=== PATIENT | female | born 1955 | race Caucasian/White ===

== ENCOUNTER 2017-06-17 13:04 | Emergency (ER) | payer BC ==
[2017-06-17 13:56] LABS: ABSOLUTE BASOPHILS # (AUTO) 0.1 10^3/uL (0.0-0.2); ABSOLUTE LYMPHOCYTES (AUTO) 0.9 10^3/uL (0.5-4.7); ABSOLUTE MONOCYTES (AUTO) 0.8 10^3/uL (0.1-1.4); ABSOLUTE NEUT (AUTO) 9.3 10^3/uL (1.7-8.2); BASOPHILS % (AUTO) 0.8 % (0-2); EOSINOPHILS % (AUTO) 0.4 % (0-6); HEMATOCRIT 39.1 % (36.0-47.0); HEMOGLOBIN 12.6 g/dL (12.0-15.5); MEAN CORPUSCULAR HEMOGLOBIN 26.3 pg (27.0-33.4); MEAN CORPUSCULAR HGB CONC 32.1 g/dL (32.0-36.0); MEAN CORPUSCULAR VOLUME 82 fl (80-97); MONOCYTES % (AUTO) 7.4 % (3-13); PLATELET COUNT 166 10^3/uL (150-450); RED BLOOD COUNT 4.79 10^6/uL (3.72-5.28); SEGMENTED NEUTROPHILS % (AUTO) 83.4 % (42-78); TOTAL CELLS COUNTED % (AUTO) 100 %; WHITE BLOOD COUNT 11.1 10^3/uL (4.0-10.5)
[2017-06-17 14:16] LABS: ALANINE AMINOTRANSFERASE 42 U/L (9-52); ALBUMIN 4.4 g/dL (3.5-5.0); ALKALINE PHOSPHATASE 122 U/L (38-126); ANION GAP 11 (5-19); ASPARTATE AMINO TRANSFERASE 53 U/L (14-36); BILIRUBIN,DIRECT 0.4 mg/dL (0.0-0.4); BILIRUBIN,TOTAL 0.6 mg/dL (0.2-1.3); BLOOD UREA NITROGEN 25 mg/dL (7-20); CALCIUM 11.4 mg/dL (8.4-10.2); CARBON DIOXIDE 28 mmol/L (22-30); CHLORIDE 107 mmol/L (98-107); GLUCOSE 102 mg/dL (75-110); LITHIUM 1.1 mEq/L (0.6-1.2); SODIUM 145.7 mmol/L (137-145); TOTAL PROTEIN 7.8 g/dL (6.3-8.2)
[2017-06-17 14:23] LABS: ACETAMINOPHEN < 10 ug/mL (10-30); ALCOHOL < 10 mg/dL (NONE DETECTED); SALICYLATE < 1.0 mg/dL (2.0-20.0)
[2017-06-17] MEDS ORDERED: NORMAL SALINE 1000 ML 1,000 ML IV ONE (14:26)
--- NOTE | 2017-06-17 14:29 | ER Document Report ---
ED General - HPI Patient complains to provider of: Overdose <JOSAFAT HENDRICKS - Last Filed: 06/17/17 15:44> <PATRICE JAFFE - Last Filed: 06/17/17 16:17> <BRIAN REYES - Last Filed: 06/17/17 16:26> - General Chief Complaint: Possible Overdose Stated Complaint: POSSIBLE OVERDOSE Time Seen by Provider: 06/17/17 13:21 - HPI Notes: Patient coming in for an overdose. Patient states night prior to arrival she took approximately 10-30 tablets of Xanax. Patient states woke up this morning had no complaints therefore came to the ER for further evaluation. Patient states "there is loss of going on in life and his took the medication. Patient does not admit to taking medications to harm herself. When asked patient denies any attempts to harm herself or overdoses in the past however she apparently told EMS that she did this approximately 20-30 years ago. Patient does not expand upon the "stress in her life". Patient states she does have a history of manic depression along with hyper lipidemia hypertension. Hypothyroidism. Patient resting comfortably upon my evaluation with dry lips. Denies fever chills nausea vomiting diarrhea (JOSAFAT HENDRICKS) - Related Data Allergies/Adverse Reactions: clarithromycin [From Biaxin] Allergy (Verified 06/17/17 13:35) Penicillins Allergy (Verified 06/17/17 13:35) sulfamethoxazole [From Septra] Allergy (Verified 06/17/17 13:35) trimethoprim [From Septra] Allergy (Verified 06/17/17 13:35) Past Medical History - Social History Smoking Status: Unknown if Ever Smoked Frequency of alcohol use: None Patient has suicidal ideation: No Patient has homicidal ideation: No Renal/ Medical History: Denies: Hx Peritoneal Dialysis <JOSAFAT HENDRICKS - Last Filed: 06/17/17 15:44> - Social History Family History: Reviewed & Not Pertinent <BRIAN REYES - Last Filed: 06/17/17 16:26> Review of Systems - Review of Systems Constitutional: Other - Overdose EENT: No symptoms reported Cardiovascular: No symptoms reported Respiratory: No symptoms reported Gastrointestinal: No symptoms reported Genitourinary: No symptoms reported Female Genitourinary: No symptoms reported Musculoskeletal: No symptoms reported Skin: No symptoms reported Hematologic/Lymphatic: No symptoms reported Neurological/Psychological: No symptoms reported <JOSAFAT HENDRICKS - Last Filed: 06/17/17 15:44> Physical Exam - Vital signs Interpretation: Normal - General General appearance: Appears well, Alert - HEENT Head: Normocephalic, Atraumatic Eyes: Normal Pupils: PERRL Mucous membranes: Dry - Respiratory Respiratory status: No respiratory distress Chest status: Nontender Breath sounds: Normal Chest palpation: Normal - Cardiovascular Rhythm: Regular Heart sounds: Normal auscultation Murmur: No - Abdominal Inspection: Normal Distension: No distension Bowel sounds: Normal Tenderness: Nontender Organomegaly: No organomegaly - Back Back: Normal, Nontender - Extremities General upper extremity: Normal inspection, Nontender, Normal color, Normal ROM , Normal temperature General lower extremity: Normal inspection, Nontender, Normal color, Normal ROM , Normal temperature, Normal weight bearing. No: Iva's sign - Neurological Neuro grossly intact: Yes Cognition: Normal Orientation: AAOx4 Darby Coma Scale Eye Opening: Spontaneous Crosby Coma Scale Verbal: Oriented Crosby Coma Scale Motor: Obeys Commands Darby Coma Scale Total: 15 Speech: Normal Motor strength normal: LUE, RUE, LLE, RLE Sensory: Normal - Psychological Associated symptoms: Normal affect, Normal mood - Skin Skin Temperature: Warm Skin Moisture: Dry Skin Color: Normal <JOSAFAT HENDRICKS - Last Filed: 06/17/17 15:44> - Vital signs Vitals: Resp 21 H 06/17/17 13:11 Course - Laboratory Result Diagrams: 06/17/17 13:40 06/17/17 13:40 <JOSAFAT HENDRICKS - Last Filed: 06/17/17 15:44> - Laboratory Result Diagrams: 06/17/17 13:40 06/17/17 13:40 <PATRICE JAFFE - Last Filed: 06/17/17 16:17> - Laboratory Result Diagrams: 06/17/17 13:40 06/17/17 13:40 <BRIAN REYES - Last Filed: 06/17/17 16:26> - Re-evaluation Re-evalutation: 06/17/17 14:28 Laboratory studies showed elevation patient's renal function more likely due to dehydration. Patient was given a liter of fluids. Patient does not endorseKidney failure in the past. Otherwise no critical etiology seen. Patient is medically cleared for psychiatric evaluation. (JOSAFAT HENDRICKS) 06/17/17 16:26 Patient was evaluated by mental health, in agreement with primary physician and myself patient is stable for discharge After performing a Medical Screening Examination, I estimate there is LOW risk for any life threatening mental health issues. At this time the patient looks extremely well and has not attempted severe self harm. I have reevaluated this patient multiple times and no significant life threatening changes are noted. The patient and I have discussed the diagnosis and risks, and we agree with discharging home with close follow-up with the understanding that symptoms and presentations can change. We also discussed returning to the Emergency Department immediately if new or worsening symptoms occur. We have discussed the symptoms which are most concerning (hallucinations, thoughts or actions of self harm or harm to others) that necessitate immediate return. (BRIAN REYES) - Vital Signs Vital signs: Temp Pulse Resp BP Pulse Ox 97.4 F 23 H 149/66 H 95 06/17/17 13:13 06/17/17 13:12 06/17/17 13:12 06/17/17 13:12 - Laboratory Laboratory results interpreted by me: 06/17/17 06/17/17 13:40 13:40 WBC 11.1 H MCH 26.3 L Seg Neutrophils % 83.4 H Lymphocytes % 8.0 L Absolute Neutrophils 9.3 H Sodium 145.7 H BUN 25 H Creatinine 1.66 H Est GFR ( Amer) 38 L Est GFR (Non-Af Amer) 31 L Calcium 11.4 H AST 53 H Salicylates < 1.0 L Acetaminophen < 10 L Valproic Acid < 10.0 L Discharge <JOSAFAT HENDRICKS - Last Filed: 06/17/17 15:44> <PATRICE JAFFE - Last Filed: 06/17/17 16:17> <BRIAN REYES - Last Filed: 06/17/17 16:26> - Discharge Clinical Impression: Intentional overdose of Xanax Bipolar disorder Qualifiers: Active/Remission status: currently active Current bipolar episode type: mixed Current episode severity: mild Qualified Code(s): F31.61 - Bipolar disorder, current episode mixed, mild Condition: Good Disposition: HOME, SELF-CARE Additional Instructions: Bipolar Disorder Bipolar disorder is also called manic-depressive disorder. Depression alternates with brain hyperactivity called kevyn. Each phase lasts from several days to a few weeks. We don't know exactly what causes bipolar disorder , but it's treatable. During the "manic phase," you may feel elated and energetic. You may have racing thoughts, rapid speech, increased activity, and grandiose ideas. During this time, you may not realize how poor your judgement is. Inappropriate spending, drug abuse, excessive alcohol use, marriage problems, and irresponsible sexual behavior are common during the manic phase. During the "depressive phase," you might feel depressed, guilty, worthless , fatigued, and unable to concentrate. You might have thoughts of suicide. Good treatments are available for bipolar disorder. [place] Of [place] is a classic drug for bipolar disorder, and is still often useful. If the manic phase is very mild, an antidepressant alone can be prescribed. If the manic phase is very severe, an antipsychotic medicine (such as Haldol) may be needed. The treatment must be matched to your symptoms, so it's important to work closely with your psychiatric care provider. Contact your physician, the hospital emergency center, crisis line, or your counsellor if you are losing control or having self-destructive thoughts. FOLLOW-UP CARE: You are encouraged to follow up with your established providers (Dr. Quintero and Katheryn Mcnulty) for continued mental health and medication management services. If you experience worsening or a significant change in your symptoms , notify the physician immediately or return to the Emergency Department at any time for re-evaluation. Referrals: ISHAAN QUINTERO MD [Primary Care Provider] - Follow up as needed
[2017-06-17 14:42] LABS: APPEARANCE,URINE CLEAR; BILIRUBIN,URINE NEGATIVE (NEGATIVE); COLOR,URINE YELLOW; GLUCOSE, URINE NEGATIVE (NEGATIVE); KETONES,URINE NEGATIVE (NEGATIVE); LEUKOCYTE ESTERASE,URINE NEGATIVE (NEGATIVE); NITRITE,URINE NEGATIVE (NEGATIVE); PROTEIN,URINE NEGATIVE (NEGATIVE); URINE SPECIFIC GRAVITY 1.009; UROBILINOGEN,URINE NEGATIVE mg/dL (<2.0)
[2017-06-17 14:55] LABS: URINE AMPHETAMINES SCREEN NEGATIVE; URINE BARBITURATES SCREEN NEGATIVE; URINE BENZODIAZEPINES SCREEN UNCONFIRMED POSITIVE; URINE COCAINE SCREEN NEGATIVE; URINE MARIJUANA (THC) SCREEN NEGATIVE; URINE METHADONE SCREEN NEGATIVE; URINE PHENCYCLIDINE SCREEN NEGATIVE
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
[2017-06-17 16:28] VITALS: BP 138/64
--- NOTE | 2017-06-18 09:31 | EKG REPORT ---
SEVERITY:- NORMAL ECG - SINUS RHYTHM : Confirmed by: Sulma Phan 18-Jun-2017 09:30:59
== END 2017-06-17 16:40 | disposition home or self-care (01) ==
LOC: ER 13:04
DX: T42.4X2A Poisoning by benzodiazepines, intentional self-harm, initial encounter (principal); Y92.009 Unspecified place in unspecified non-institutional (private) residence as the place of occurrence of the external cause; F31.61 Bipolar disorder, current episode mixed, mild; I10 Essential (primary) hypertension; Z88.1 Allergy status to other antibiotic agents; Z88.0 Allergy status to penicillin
CPT/HCPCS: 93005; 99285; 96360; 36415; 80307 ×4; 80178; 85025; 80053; 81001; 80164; 93010; J7030

== ENCOUNTER 2017-06-21 15:16 | Emergency (ER) | payer BC ==
[2017-06-21 16:15] LABS: INTERNATIONAL RATION (INR) 0.98; PROTHROMBIN TIME 13.7 SEC (11.4-15.4)
--- NOTE | 2017-06-21 16:15 | ER Document Report ---
ED Psych Disorder / Suicide - General Mode of Arrival: Medic Information source: Patient, Parent, Relative, Law Enforcement Cannot obtain history due to: Altered mental status TRAVEL OUTSIDE OF THE [place] IN LAST 30 DAYS: No <JENNIFER BEDOYA - Last Filed: 06/21/17 18:32> <ROMERO JOHNSON - Last Filed: 06/21/17 18:41> - General Chief Complaint: Suicidal Ideation Stated Complaint: POSSIBLE OVERDOSE Time Seen by Provider: 06/21/17 15:55 Notes: Patient is a 62-year-old female who presents to the emergency department today with complaints of a possible overdose. EMS states during transport here the patient had periods of apnea. Law enforcement states that on their arrival the patient mentioned taking 4 lithium capsules but then stopped talking. According to family at bedside, the patient used to live with her mother however the patient's mother has developed Parkinson's so she moved to the [facility] with the patient's brother who is at bedside as well. Brother states that they "lost track of her" saying that they were unable to get ahold of her so they came to [place] to attempt to locate her. They found her at her mother's house "in this state". Family found a suicide note that the patient left behind. Law-enforcement at bedside states that the patient also had an overdose attempt last week in which she called law-enforcement after doing it stating she took 20 or 30 Xanax. It is not known the type or amount of mediations taken during this attempt. Patient had a bottle of lithium beside her when she was found however that prescription was from early May so it is unknown how many pills the patient took. The patient is prescribed lithium, Seroquel, Synthroid, and Zoloft. (JENNIFER BEDOYA) - Related Data Allergies/Adverse Reactions: clarithromycin [From Biaxin] Allergy (Verified 06/17/17 13:35) Penicillins Allergy (Verified 06/17/17 13:35) sulfamethoxazole [From Septra] Allergy (Verified 06/17/17 13:35) trimethoprim [From Septra] Allergy (Verified 06/17/17 13:35) Past Medical History - General Information source: Parent, Relative, [facility] Records Cannot obtain history due to: Altered mental status - Social History Smoking Status: Unknown if Ever Smoked Lives with: Alone Family History: Reviewed & Not Pertinent Psychiatric Medical History: Reports: Hx Bipolar Disorder Surgical Hx: Negative <JENNIFER BEDOYA - Last Filed: 06/21/17 18:32> - Past Medical History Cardiac Medical History: Reports: Hx Hypercholesterolemia, Hx Hypertension EENT Medical History: Reports: Other - Parathyroidectomy. Endocrine Medical History: Reports: Hx Hypothyroidism, Other - Parathyroidectomy , thyroid hyperplasia, vitamin D deficiency Psychiatric Medical History: Reports: Hx Dementia <ROMERO JOHNSON - Last Filed: 06/21/17 18:41> Review of Systems - Review of Systems -: Yes ROS unobtainable due to patient's medical condition <JENNIFER BEDOYA - Last Filed: 06/21/17 18:32> Physical Exam <JENNIFER BEDOYA - Last Filed: 06/21/17 18:32> <ROMERO JOHNSON - Last Filed: 06/21/17 18:41> - Vital signs Vitals: Pulse Ox 82 L 06/21/17 15:19 - Notes Notes: PHYSICAL EXAM GENERAL: Awake but somewhat drowsy. HEAD: Normocephalic, atraumatic. EYES: Pupils equal, round, and reactive to light. Extraocular movements intact. ENT: Oral mucosa moist, tongue midline. NECK: Full range of motion. Supple. Trachea midline. LUNGS: Clear to auscultation bilaterally, no wheezes, rales, or rhonchi. No respiratory distress. HEART: Tachycardic, regular rhythem, 2/6 systolic murmur. No gallops or rubs. ABDOMEN: Soft, non-tender. Non-distended. Bowel sounds present in all 4 quadrants but hypoactive. No guarding, rigidity, or rebound. EXTREMITIES: Moves all 4 extremities spontaneously. No edema, radial and dorsalis pedis pulses 2/4 bilaterally. No cyanosis. NEUROLOGICAL: Disoriented. Is able to state that she is at [facility] but states President Obama is in office, states it is 2001, and is unable to state her age. Stops talking and stares off intermittently, does not respond to painful stimuli during these episodes consistent with seizure activity. Follows commands prior to these episodes. Biceps and patellar DTRs 2+ bilaterally. PSYCH: Flat affect SKIN: Warm, dry, normal turgor. No rashes or lesions noted. (JENNIFER BEDOYA) Course - Laboratory Result Diagrams: 06/21/17 15:23 06/21/17 15:23 <JENNIFER BEDOYA - Last Filed: 06/21/17 18:32> - Laboratory Result Diagrams: 06/21/17 15:23 06/21/17 15:23 <ROMERO JOHNSON - Last Filed: 06/21/17 18:41> - Re-evaluation Re-evalutation: 06/21/17 16:42 My concern for lithium overdose is confirmed, lithium level is 4.8, this is high enough that given her symptoms she will likely need emergent dialysis. We do not have nephrology athletic monitor at this time. Patient will need to be transferred. IV hydration has been started with normal saline, she has been sent for CT scan of the head because of her mental status changes. Salicylate, acetaminophen and alcohol levels are all undetectable, cardiac enzymes are negative, she does have renal failure with a BUN of 28 and creatinine of 2.15. This is not significantly changed from when she was seen here a few days ago. I did call [facility] but they are on regional management due to their capacity and cannot accept an emergent dialysis patient at this time. I then called [facility] and I am waiting for phone call back. 06/21/17 18:[address] Gutierrez from [facility] the roof slater who accepts the patient to his service on the ICU, agrees with the need for emergent dialysis. He is aware that the patient has since started having tonic- clonic seizures and is not recovering well from them, the seizing is stopped however she remains postictal, unresponsive and hypoxic. Patient has now been intubated and is on a Versed drip. No complications with the intubation. 06/21/17 18:41 Transport is now at bedside, she is intubated, sedated, doing well. Stable for transport. (ROMERO JOHNSON) - Vital Signs Vital signs: Temp Pulse Resp BP Pulse Ox 20 130/91 H 96 06/21/17 18:01 06/21/17 18:01 06/21/17 18:01 - Laboratory Laboratory results interpreted by me: 06/21/17 06/21/17 06/21/17 15:23 15:23 17:45 MCH 26.1 L MCHC 31.6 L Seg Neuts % (Manual) 92 H Band Neutrophils % 1 L Lymphocytes % (Manual) 1 L Metamyelocytes % 1 H Abs Neuts (Manual) 9.7 H Abs Lymphs (Manual) 0.1 L Chloride 108 H BUN 28 H Creatinine 2.15 H Est GFR ( Amer) 28 L Est GFR (Non-Af Amer) 23 L Calcium 10.7 H AST 42 H Urine Protein 30 H Urine Ketones TRACE H Salicylates < 1.0 L Acetaminophen < 10 L [place] 4.8 H* - EKG Interpretation by Me Additional EKG results interpreted by me: 06/21/17 16:45 EKG shows sinus tachycardia at a rate of 114, normal axis, normal intervals, no ST segment elevations, no ST segment depressions, no T-wave inversions per my interpretation. (ROMERO JOHNSON) Procedures - Intubation Orotracheal Airway evaluation: Normal anatomy Mallampati Classification: Class 3 Medications: Etomidate, Vecuronium Intubation method: Orotracheal Blade type: Derian Blade size: 4 ETT size: 8.0 ETT secured at: Teeth ETT secured at (cm): 22 Breath Sounds after Intubation: Equal End tidal CO2 confirmed: Yes Ventilator settings: SIMV Tidal volume: 400 FiO2: 100 Respirations: 14 Pressure support: 10 PEEP: 5 Post Intubation Xray: Yes Intubation Complications: No complications <ROMERO JOHNSON - Last Filed: 06/21/17 18:41> Critical Care Note - Critical Care Note Total time excluding time spent on procedures (mins): 45 <ROMERO JOHNSON - Last Filed: 06/21/17 18:41> Discharge <JENNIFER BEDOYA - Last Filed: 06/21/17 18:32> <ROMERO JOHNSON - Last Filed: 06/21/17 18:41> - Discharge Clinical Impression: Suicide attempt, Acute respiratory failure with hypoxia Intentional lithium overdose Qualifiers: Encounter type: initial encounter Qualified Code(s): T56.892A - Toxic effect of other metals, intentional self-harm, initial encounter Renal failure Qualifiers: Renal failure chronicity: unspecified chronicity Qualified Code(s): N19 - Unspecified kidney failure Condition: Critical Disposition: [facility] Referrals: ISHAAN VARGAS MD [Primary Care Provider] - Follow up as needed Scribe Attestation: 02/17/18 18:41 I personally performed the services described in the documentation, reviewed and edited the documentation which was dictated to the scribe in my presence, and it accurately records my words and actions. (ROMERO JOHNSON) Scribe Documentation - Scribe Written by Scribe:: Socrates Esquivel, 06/21/2017 1802 acting as scribe for :: Yaima <JENNIFER BEDOYA - Last Filed: 06/21/17 18:32>
[2017-06-21 16:18] LABS: HEMATOCRIT 39.2 % (36.0-47.0); HEMOGLOBIN 12.4 g/dL (12.0-15.5); MEAN CORPUSCULAR HEMOGLOBIN 26.1 pg (27.0-33.4); MEAN CORPUSCULAR HGB CONC 31.6 g/dL (32.0-36.0); MEAN CORPUSCULAR VOLUME 83 fl (80-97); PLATELET COUNT 188 10^3/uL (150-450); RED BLOOD COUNT 4.75 10^6/uL (3.72-5.28); WHITE BLOOD COUNT 10.3 10^3/uL (4.0-10.5)
[2017-06-21 16:23] LABS: ALANINE AMINOTRANSFERASE 41 U/L (9-52); ALKALINE PHOSPHATASE 93 U/L (38-126); ANION GAP 11 (5-19); ASPARTATE AMINO TRANSFERASE 42 U/L (14-36); BILIRUBIN,DIRECT 0.2 mg/dL (0.0-0.4); BILIRUBIN,TOTAL 0.2 mg/dL (0.2-1.3); BLOOD UREA NITROGEN 28 mg/dL (7-20); CALCIUM 10.7 mg/dL (8.4-10.2); CARBON DIOXIDE 26 mmol/L (22-30); CHLORIDE 108 mmol/L (98-107); CREATINE KINASE 89 U/L (30-135); GLUCOSE 89 mg/dL (75-110); POTASSIUM 4.8 mmol/L (3.6-5.0); SODIUM 144.8 mmol/L (137-145); TOTAL PROTEIN 6.5 g/dL (6.3-8.2)
[2017-06-21 16:30] LABS: ACETAMINOPHEN < 10 ug/mL (10-30); ALCOHOL < 10 mg/dL (NONE DETECTED); SALICYLATE < 1.0 mg/dL (2.0-20.0)
[2017-06-21 16:32] LABS: LITHIUM 4.8 mEq/L (0.6-1.2)
[2017-06-21] MEDS ORDERED: NORMAL SALINE 1000 ML 1,000 ML IV PRN (16:35)
[2017-06-21 16:37] LABS: CREATINE KINASE MB 1.39 ng/mL (<4.55)
[2017-06-21 16:38] LABS: TROPONIN I < 0.012 ng/mL
[2017-06-21 16:44] LABS: BASOPHILS % (MANUAL) 0 % (0-2)
[2017-06-21 16:45] LABS: ABSOLUTE LYMPHOCYTES# (MANUAL) 0.1 10^3/uL (0.5-4.7); ABSOLUTE MONOCYTES # (MANUAL) 0.4 10^3/uL (0.1-1.4); ABSOLUTE NEUTROPHILS# (MANUAL) 9.7 10^3/uL (1.7-8.2); ANISOCYTOSIS SLIGHT; BAND NEUTROPHILS % (MANUAL) 1 % (3-5); EOSINOPHILS % (MANUAL) 1 % (0-6); HYPOCHROMASIA SLIGHT; LYMPHOCYTES % (MANUAL) 1 % (13-45); METAMYELOCYTES % (MANUAL) 1 % (0); MONOCYTES % (MANUAL) 4 % (3-13); PLATELET CLUMPS PRESENT; PLATELET COMMENT ADEQUATE; PLATELET LARGE PRESENT; POLYCHROMASIA SLIGHT; ROULEAUX SLIGHT; SEGMENTED NEUTROPHILS % (MAN) 92 % (42-78); TOTAL CELLS COUNTED 100
--- NOTE | 2017-06-21 16:59 | RADIOLOGY REPORT (SQ) ---
EXAM DESCRIPTION: CT HEAD WITHOUT COMPLETED DATE/TIME: 06/21/2017 4:51 pm REASON FOR STUDY: altered mental status COMPARISON: None. TECHNIQUE: Axial images acquired through the brain without intravenous contrast. Images reviewed wi th bone, brain and subdural windows. Images stored on PACS. All CT scanners at this facility use dose modulation, iterative reconstruction, and/or weight based d osing when appropriate to reduce radiation dose to as low as reasonably achievable (ALARA). [facility]: Dose Right [facility]: CareDose [facility]: Dose Right [facility]: Teradose 4D [facility]: Ascendx Spine RADIATION DOSE: CT Rad equipment meets quality standard of care and radiation dose reduction techniq ues were employed. CTDIvol: 64.6 mGy. DLP: 1163 mGy-cm. mGy. LIMITATIONS: None. FINDINGS: VENTRICLES: Normal size and contour. CEREBRUM: No masses. No hemorrhage. No midline shift. No evidence for acute infarction. Normal gra y/white matter differentiation. No areas of low density in the white matter. CEREBELLUM: No masses. No hemorrhage. No alteration of density. No evidence for acute infarction. EXTRAAXIAL SPACES: No fluid collections. No masses. ORBITS AND GLOBE: No intra- or extraconal masses. Normal contour of globe without masses. CALVARIUM: No fracture. PARANASAL SINUSES: No fluid or mucosal thickening. SOFT TISSUES: No mass or hematoma. OTHER: No other significant finding. IMPRESSION: NORMAL BRAIN CT WITHOUT CONTRAST. EVIDENCE OF ACUTE STROKE: NO. COMMENT: Quality ID # [id number]: Final reports with documentation of one or more dose reduction techniques (e.g., Automated exposure control, adjustment of the mA and/or kV according to patient size, use of iterative reconstruction technique) TECHNICAL DOCUMENTATION: JOB ID: [id number] [employer]- All Rights Reserved
--- NOTE | 2017-06-21 17:05 | RADIOLOGY REPORT (SQ) ---
EXAM DESCRIPTION: CHEST SINGLE VIEW COMPLETED DATE/TIME: 06/21/2017 4:57 pm REASON FOR STUDY: hypoxia, overdose COMPARISON: None. NUMBER OF VIEWS: One view. TECHNIQUE: Single frontal radiographic view of the chest acquired. LIMITATIONS: None. FINDINGS: LUNGS AND PLEURA: Low lung volumes. No opacities, masses or pneumothorax. No pleural eff usion. MEDIASTINUM AND HILAR STRUCTURES: No masses. No contour abnormality. HEART AND VASCULAR STRUCTURES: Normal size. No evidence for failure. BONES: No acute findings. HARDWARE: None in the chest. OTHER: No other significant finding. IMPRESSION: LOW LUNG VOLUMES. NO SIGNIFICANT RADIOGRAPHIC FINDING IN THE CHEST. TECHNICAL DOCUMENTATION: JOB ID: [id number] [employer]- All Rights Reserved
[2017-06-21] MEDS ORDERED: VECURONIUM BROMIDE INJ 10 MG VIAL IV ONE ×2 (17:12→18:20)
[2017-06-21] MEDS ORDERED: ETOMIDATE INJ/PF 20 MG/10 ML SDV IV ONE ×2 (17:12→18:20)
[2017-06-21] MEDS ORDERED: MIDAZOLAM HCL 50 MG/100 ML RTUINJ IV ONE (17:37)
[2017-06-21] MEDS ORDERED: MIDAZOLAM HCL 50 MG/100 ML RTUINJ IV PRN (18:20)
[2017-06-21 18:29] LABS: APPEARANCE,URINE SLIGHTLY-CLOUDY; BILIRUBIN,URINE NEGATIVE (NEGATIVE); COLOR,URINE YELLOW; GLUCOSE, URINE NEGATIVE (NEGATIVE); KETONES,URINE TRACE mg/dL (NEGATIVE); LEUKOCYTE ESTERASE,URINE NEGATIVE (NEGATIVE); NITRITE,URINE NEGATIVE (NEGATIVE); PROTEIN,URINE 30 mg/dL (NEGATIVE); URINE SPECIFIC GRAVITY 1.014; UROBILINOGEN,URINE NEGATIVE mg/dL (<2.0)
[2017-06-21 18:39] LABS: URINE AMPHETAMINES SCREEN NEGATIVE; URINE BARBITURATES SCREEN NEGATIVE; URINE BENZODIAZEPINES SCREEN UNCONFIRMED POSITIVE; URINE COCAINE SCREEN NEGATIVE; URINE MARIJUANA (THC) SCREEN NEGATIVE; URINE METHADONE SCREEN NEGATIVE; URINE PHENCYCLIDINE SCREEN NEGATIVE
--- NOTE | 2017-06-21 19:02 | RADIOLOGY REPORT (SQ) ---
EXAM DESCRIPTION: CHEST SINGLE VIEW COMPLETED DATE/TIME: 06/21/2017 6:39 pm REASON FOR STUDY: ET and OG tube placement COMPARISON: Study from earlier today. FINDINGS: Single AP upright portably obtained chest with an additional upright view of the abdomen. 2 images total. Appropriate endotracheal tube. Nasogastric tube down, appropriately positioned. Low lung volumes, similar appearance to prior. IMPRESSION: Appropriate endotracheal and nasogastric tubes. TECHNICAL DOCUMENTATION: JOB ID: [id number]
[2017-06-21 20:14] VITALS: BP 158/98
--- NOTE | 2017-06-21 22:15 | EKG REPORT ---
SEVERITY:- ABNORMAL ECG - SINUS TACHYCARDIA ABNORMAL T, CONSIDER ISCHEMIA, LATERAL LEADS : Confirmed by: Sulma Phan 21-Jun-2017 22:14:21
== END 2017-06-21 19:05 | disposition short-term general hospital (02) ==
LOC: ER 15:16
PROC: 0BH17EZ Insertion of Endotracheal Airway into Trachea, Via Natural or Artificial Opening (ICD-10-PCS; principal; 2017-06-21)
DX: T56.892A Toxic effect of other metals, intentional self-harm, initial encounter (principal); J96.01 Acute respiratory failure with hypoxia; N19 Unspecified kidney failure; R45.851 Suicidal ideations
CPT/HCPCS: 93005; 99291; 96360; 51702; 36415; 82553; 80307 ×4; 82550; 80178; 85025; 85610; 80053; 81001; 84484; 71045; 70450; 93010; 31500; J3490; J2250; J7030